=== PATIENT | male | born 1980 | race Native Hawaiian/Other Pacific Islander ===

== ENCOUNTER 2016-10-04 17:32 | Emergency (ER) | payer OTHER ==
[~2016-10-04] VITALS: Ht 175.3 cm; Wt 90.7 kg
== END 2016-10-04 18:24 | disposition home or self-care (01) ==
LOC: ED 17:32
DX: S90.31XA Contusion of right foot, initial encounter (principal); W22.03XA Walked into furniture, initial encounter; Y92.098 Other place in other non-institutional residence as the place of occurrence of the external cause
CPT/HCPCS: 99282

== ENCOUNTER 2016-11-10 19:10 | Outpatient (CLI) | payer OTHER | END 2016-11-10 19:36 | disposition home or self-care (01) | LOC: LABW 19:10 | DX: R19.7 Diarrhea, unspecified (principal) | CPT/HCPCS: 82272; 87015; 87045; 87205; 87206; 87328; 87329; 87899 ==

== ENCOUNTER 2017-08-06 13:29 | Emergency (ER) | payer OTHER ==
[~2017-08-06] VITALS: Ht 175.3 cm; Wt 81.6 kg
== END 2017-08-06 14:15 | disposition home or self-care (01) ==
LOC: ED 13:29
DX: S60.221A Contusion of right hand, initial encounter (principal); Y04.0XXA Assault by unarmed brawl or fight, initial encounter; Y92.89 Other specified places as the place of occurrence of the external cause
CPT/HCPCS: 99282

== ENCOUNTER 2017-11-16 09:26 | Outpatient (CLI) | payer OTHER ==
[2017-11-16 09:55] LABS: PLATELET COUNT 259 K/uL (142-355)
[2017-11-16 10:17] LABS: POTASSIUM 4.3 mmol/L (3.6-5.2)
== END 2017-11-16 22:11 | disposition home or self-care (01) ==
LOC: LABW 09:26
PROVIDERS: Internal Medicine
DX: R63.4 Abnormal weight loss (principal); F19.10 Other psychoactive substance abuse, uncomplicated
CPT/HCPCS: 36415; 80053; 80061; 80307; 81000; 84439; 84443; 85027; 85651; 86039; 86592

== ENCOUNTER 2017-11-24 10:41 | Outpatient (CLI) | payer OTHER | END 2017-11-24 21:16 | disposition home or self-care (01) | LOC: LABW 10:41 | DX: R53.83 Other fatigue (principal) | CPT/HCPCS: 36415; 86308; 86644; 86645; 86663; 86664; 86665 ==

== ENCOUNTER 2017-11-29 08:36 | Outpatient (CLI) | payer OTHER | END 2017-11-29 21:55 | disposition home or self-care (01) | LOC: CT 08:36 | DX: R10.31 Right lower quadrant pain (principal) | CPT/HCPCS: Q9963 ==

== ENCOUNTER 2018-03-29 04:38 | Emergency (ER) | payer OTHER ==
[~2018-03-29] VITALS: Ht 175.3 cm; Wt 82.6 kg
[2018-03-29 04:45] VITALS: BP 146/90; TEMP 98
[2018-03-29 05:17] LABS: PLATELET COUNT 272 K/uL (142-355)
[2018-03-29 05:40] LABS: POTASSIUM 3.8 mmol/L (3.6-5.2)
== END 2018-03-29 06:39 | disposition home or self-care (01) ==
LOC: ED 04:38
PROVIDERS: Internal Medicine
DX: R11.2 Nausea with vomiting, unspecified (principal)
CPT/HCPCS: 36415; 80053; 85027; 96372; 99283; J2405

== ENCOUNTER 2018-07-25 08:38 | Emergency (ER) | payer OTHER ==
[~2018-07-25] VITALS: Ht 175.3 cm; Wt 86.2 kg
[2018-07-25 08:42] VITALS: TEMP 97.9
[2018-07-25 10:05] VITALS: BP 135/79
== END 2018-07-25 10:05 | disposition home or self-care (01) ==
LOC: ED 08:38
DX: S29.012A Strain of muscle and tendon of back wall of thorax, initial encounter (principal); X50.1XXA Overexertion from prolonged static or awkward postures, initial encounter
CPT/HCPCS: 96372; 99282; J1885

== ENCOUNTER 2019-02-25 20:27 | Emergency (ER) | payer OTHER ==
[~2019-02-25] VITALS: Ht 175.3 cm; Wt 86.2 kg
[2019-02-25 21:05] VITALS: BP 142/76; TEMP 98.6
== END 2019-02-25 21:05 | disposition home or self-care (01) ==
LOC: ED 20:27
DX: T63.301A Toxic effect of unspecified spider venom, accidental (unintentional), initial encounter (principal); R22.32 Localized swelling, mass and lump, left upper limb
CPT/HCPCS: 96372; 99283; J0696; J1885